=== PATIENT | female | born 1990 | race Two or more races ===

== ENCOUNTER 2016-09-19 22:07 | Inpatient (IN) | payer SELFPAY ==
[2016-09-19 22:34] VITALS: BMI 29.2
[2016-09-19 22:58] LABS: BILIRUBIN,URINE NEGATIVE (NEGATIVE); BLOOD/HEMOGLOBIN,URINE 4+ (NEGATIVE); GLUCOSE, URINE NEGATIVE (NEGATIVE); KETONES,URINE NEGATIVE (NEGATIVE); LEUKOCYTE ESTERASE ,URINE 1+ (NEGATIVE); NITRITES,URINE NEGATIVE (NEGATIVE); PROTEIN,URINE NEGATIVE (NEGATIVE); UROBILINOGEN,URINE NORMAL (NORMAL)
[2016-09-19 23:10] LABS: APPEARANCE,URINE SLIGHTLY HAZY (CLEAR); COLOR,URINE YELLOW (YELLOW); RBC,URINE 0-3 /HPF (NEGATIVE)
[2016-09-19 23:11] LABS: BACTERIA,URINE TRACE /HPF (NEGATIVE); SQUAMOUS EPITHELIAL CELL,UR MODERATE /HPF (NEGATIVE)
[2016-09-19] MEDS ORDERED: D5 1/2 NS 1000 ML 1,000 ML IV SCH (23:20)
[2016-09-19] MEDS ORDERED: PITOCIN 10 UNITS in D5 LR 1000 ML 1,000 ML IV PRN (23:24)
[2016-09-19] MEDS ORDERED: PITOCIN IVP ONE (23:24)
[2016-09-19] MEDS ORDERED: NUBAIN INJ 200 MG VIAL MULTIDOSE IVP PRN (23:24)
[2016-09-19] MEDS ORDERED: REGLAN INJ 10 MG VIAL IVP PRN (23:24)
[2016-09-19] MEDS ORDERED: PHENERGAN INJ 25 MG IV PRN (23:24)
[2016-09-19] MEDS ORDERED: DILAUDID INJ IVP PRN (23:24)
[2016-09-19] MEDS ORDERED: PITOCIN ONE (23:33)
[2016-09-19] MEDS ORDERED: D5 1/2 NS 1000ML W PITOCIN 20 U/L 1,000 ML IV ONE (23:33)
[2016-09-19] MEDS ORDERED: D5 1/2 NS 1000 ML 1,000 ML IV ONE (23:33)
[2016-09-19] MEDS ORDERED: D5LR 1000ML W PITOCIN 10 U/L 1,000 ML IV ONE (23:33)
[2016-09-19 23:51] LABS: BASOPHILS % (AUTO) 0.4 % (0.2-1.0); EOSINOPHILS # (AUTO) 0.1 x10^3/uL (0.0-0.2); EOSINOPHILS % (AUTO) 0.6 % (0.9-2.9); HEMATOCRIT 28.4 % (36.0-47.0); HEMOGLOBIN 9.2 g/dL (12.0-16.0); LYMPHOCYTES # (AUTO) 1.8 X10^3/uL (1.3-2.9); MEAN CORPUSCULAR HEMOGLOBIN 22.5 pg (27.0-34.0); MEAN CORPUSCULAR HGB CONC 32.3 g/dL (33.0-35.0); MEAN CORPUSCULAR VOLUME 69.6 fL (80.0-100.0); MEAN PLATELET VOLUME 8.3 fL (7.4-11.0); MONOCYTES # (AUTO) 0.7 x10^3/uL (0.3-0.8); MONOCYTES % (AUTO) 7.4 % (0.0-13.0); NEUTROPHILS # (AUTO) 6.6 x10^3/uL (2.2-4.8); NEUTROPHILS % (AUTO) 71.6 % (42.0-75.0); PLATELET COUNT 242 X10^3/uL (150.0-450.0); RED BLOOD COUNT 4.08 X10^6/uL (3.5-5.4); RED CELL DISTRIBUTION WIDTH 18.2 % (11.6-16.5); WHITE BLOOD COUNT 9.2 X10^3/uL (3.6-10.0)
[2016-09-19 23:55] LABS: BLOOD UREA NITROGEN 7 mg/dL (7-18); CALCIUM 9.1 mg/dL (8.5-10.1); CHLORIDE 105 mmol/L (98-107); CREATININE 0.54 mg/dL (0.55-1.02); GLUCOSE 96 mg/dL (65-99); SODIUM 139 mmol/L (136-145); eGFR BLACK RACES > 60 (>60); eGFR NON BLACK RACES > 60 (>60)
[2016-09-20 00:39] LABS: ANISOCYTOSIS SLIGHT; HYPOCHROMASIA 1+; MICROCYTOSIS 1+; PLATELET MORPHOLOGY COMMENT NORMAL (NORMAL)
[2016-09-20] MEDS ORDERED: NUBAIN INJ 10 ONE (03:47)
[2016-09-20] MEDS ORDERED: XYLOCAINE 1 % (PLAIN) ONE (06:15)
[2016-09-20] MEDS ORDERED: MOTRIN TAB 800 MG PO PRN ×2 (06:23→07:03)
[2016-09-20] MEDS ORDERED: PHENERGAN INJ 25 MG IV PRN (06:23)
[2016-09-20] MEDS ORDERED: D5 1/2 NS 1000 ML 1,000 ML with PITOCIN 20 UNITS IV SCH ×2 (07:00)
[2016-09-20] MEDS ORDERED: ADACEL TDaP IM ONE ×2 (07:03→11:00)
[2016-09-20] MEDS ORDERED: DERMOPLAST SPRAY TOP PRN (07:03)
[2016-09-20] MEDS ORDERED: MILK OF MAGNESIA PO PRN (07:03)
[2016-09-20] MEDS ORDERED: AMBIEN PO PRN (07:03)
[2016-09-20] MEDS: PRENATAL PLUS PO SCH (09:23)
[2016-09-20] MEDS: ZANTAC PO SCH ×2 (09:23→21:55)
[2016-09-20 11:52] LABS: HEMATOCRIT 23.5 % (36.0-47.0); HEMOGLOBIN 7.5 g/dL (12.0-16.0)
[2016-09-21 05:39] LABS: HEMATOCRIT 20.2 % (36.0-47.0)
[2016-09-21 05:56] LABS: HEMOGLOBIN 6.6 g/dL (12.0-16.0)
[2016-09-21] MEDS: PRENATAL PLUS PO SCH (10:06)
[2016-09-21] MEDS: ZANTAC PO SCH ×2 (10:06→21:25)
[2016-09-21] MEDS ORDERED: PHARMACY CONSULT - DOSE _____ XX SCH (12:00)
[2016-09-21] MEDS ORDERED: DEXFERRUM or INFED 1,000 MG in NS 500 ML IV 500 ML IV ONE (13:00)
[2016-09-21] MEDS ORDERED: DEXFERRUM or INFED 25 MG in NS 100 ML IV 100 ML IV SCH (13:00)
[2016-09-21] MEDS ORDERED: NS 250 ML IV 250 ML IV ONE (13:16)
[2016-09-21] MEDS ORDERED: NS 250 ML IV 250 ML IV SCH (13:30)
[2016-09-22] MEDS: PRENATAL PLUS PO SCH (08:28)
[2016-09-22] MEDS: ZANTAC PO SCH (08:28)
[2016-09-22 13:14] VITALS: BP 114/66
== END 2016-09-22 12:45 | disposition home or self-care (01) | DRG 775 ==
LOC: ER 22:07 → LD 23:24 → MED/SURG 09-20 06:57
PROVIDERS: ADMIT Obstetrics & Gynecology Obstetrics; ATTEND Obstetrics & Gynecology Obstetrics
PROC: 10E0XZZ Delivery of Products of Conception, External Approach (ICD-10-PCS; principal; 2016-09-19)
PROC: 0KQM0ZZ Repair Perineum Muscle, Open Approach (ICD-10-PCS; 2016-09-19)
PROC: 3E0234Z Introduction of Serum, Toxoid and Vaccine into Muscle, Percutaneous Approach (ICD-10-PCS; 2016-09-20)
DX: O70.1 Second degree perineal laceration during delivery (principal); Z37.0 Single live birth; Z3A.39 39 weeks gestation of pregnancy; Z23 Encounter for immunization
CPT/HCPCS: 36415; 59409; 80048; 81001; 85014; 85018; 85025; 86592; 86850; 86900; 86901; 99284; A4216; A4222; S0197; J2001; J2300; J2590; J7042